=== PATIENT | male | born 1930 | race Caucasian/White ===

== ENCOUNTER → 2019-06-05 | Outpatient (CLI) | payer MEDICARE | END | disposition home or self-care (01) | LOC: PCVCCLINIC 10:00 | PROVIDERS: ATTEND Internal Medicine | DX: I25.10 Atherosclerotic heart disease of native coronary artery without angina pectoris (principal); G45.9 Transient cerebral ischemic attack, unspecified; E11.9 Type 2 diabetes mellitus without complications; E78.5 Hyperlipidemia, unspecified; I95.9 Hypotension, unspecified; E03.9 Hypothyroidism, unspecified; K21.9 Gastro-esophageal reflux disease without esophagitis; Z82.49 Family history of ischemic heart disease and other diseases of the circulatory system; Z95.1 Presence of aortocoronary bypass graft | CPT/HCPCS: 36415; 80061; 93005; G0463 ==

== ENCOUNTER → 2019-06-12 | Outpatient (CLI) | payer MEDICARE ==
--- NOTE | 2019-06-12 16:35 | PCVCIMAG ---
APPROVED REPORT Study performed: 06/12/2019 09:52:20 EXAM: Comprehensive 2D, Doppler, and color-flow Echocardiogram Patient Location: Echo lab Room #: [id number]: routine BSA: 1.66 HR: 82 bpmBP: 104/64 mmHg Rhythm: NSR Other Information Study Quality: Adequate Risk Factors: Cardiac Risk Factors: Hyperlipidemia, DM Indications Diabetes CAD 2D Dimensions IVSd: 11.48 (7-11mm)LVOT Diam: 20.00 (18-24mm) LVDd: 51.24 mm PWd: 12.18 (7-11mm)Ascending Ao: 31.39 (22-36mm) LVDs: 39.83 (25-40mm) Left Atrium: 42.92 (27-40mm) Aortic Root: 31.09 mm LV Single Plane 4CH: 58.43 % LV Single Plane 2CH: 48.86 % Biplane EF: 53.0 % Volumes Left Atrial Volume (Systole) Single Plane 4CH: 68.06 mLSingle Plane 2CH: 68.86 mL LA ESV Index: 41.00 mL/m2 Aortic Valve AoV Peak Pedro.: 1.13 m/s AO Peak Gr.: 5.11 mmHgLVOT Max P.56 mmHg LVOT Max V: 0.94 m/s KERRI Vmax: 2.71 cm2 Mitral Valve E/A Ratio: 0.7 MV Decel. Time: 201.09 ms MV E Max Pedro.: 0.51 m/s MV A Pedro.: 0.71 m/s IVRT: 76.12 ms TDI E/Lateral E': 12.75E/Medial E': 7.29 Medial E' Pedro.: 0.07 m/s Lateral E' Pedro.: 0.04 m/s Pulmonary Valve PV Peak Pedro.: 0.96 m/sPV Peak Gr.: 3.71 mmHg Pulmonary Vein P Vein S: 0.57 m/sP Vein A: 0.52 m/s P Vein D: 0.36 m/sP Vein A Dur.: 124.6 msec P Vein S/D Ratio: 1.58 Left Ventricle The left ventricle is normal size. Septal and anterior akinesis. Borderline concentric left ventricular hypertrophy. Left ventricular systolic function is mildly decreased. LVEF is 45-50%. Mild diastolic dysfunction is present (impaired relaxation pattern). Right Ventricle The right ventricle is normal size. The right ventricular systolic function is normal. Atria Left atrium is mildly dilated. The right atrium size is normal. Aortic Valve The Aortic valve is sclerotic. Trace aortic regurgitation. There is no aortic valvular stenosis. Mitral Valve There is mitral annular calcification. Trace mitral regurgitation. No evidence of mitral valve stenosis. Tricuspid Valve The tricuspid valve is normal in structure. There is no tricuspid valve regurgitation noted. Pulmonic Valve The pulmonary valve is normal in structure. Mild pulmonic regurgitation. Great Vessels The aortic root is normal in size. The ascending aorta is normal in size. IVC is not well visualized. Pericardium There is no pericardial effusion. <Conclusion> The left ventricle is normal size. LVEF is 45-50%. Septal and anterior akinesis. Left atrium is mildly dilated. The Aortic valve is sclerotic. Trace aortic regurgitation. There is mitral annular calcification. Trace mitral regurgitation. The tricuspid valve is normal in structure. The pulmonary valve is normal in structure. Mild pulmonic regurgitation. There is no pericardial effusion.
== END | disposition home or self-care (01) ==
LOC: PCVCIMAG 09:43
PROVIDERS: ATTEND Internal Medicine
DX: I08.8 Other rheumatic multiple valve diseases (principal); E11.9 Type 2 diabetes mellitus without complications; I25.10 Atherosclerotic heart disease of native coronary artery without angina pectoris
CPT/HCPCS: 93306